=== PATIENT | male | born 1955 | race Caucasian/White ===

== ENCOUNTER 2020-05-30 09:28 | Inpatient (IN) | payer OTHER ==
[2020-05-30] MEDS ORDERED: NORMAL SALINE 1000 ML 1,000 ML IV ONE (10:23)
[2020-05-30] MEDS ORDERED: ONDANSETRON HCL INJ/PF 4 MG/2 ML SDV IV ONE (10:23)
--- NOTE | 2020-05-30 10:25 | ER Document Report ---
ED Medical Screen (RME) - General Chief Complaint: Abdominal Pain Stated Complaint: RIGHT ABDOMINAL PAIN Time Seen by Provider: 05/30/20 10:19 Primary Care Provider: CELSO COYNE MD [Primary Care Provider] - Follow up as needed Notes: Patient presents with right lower quadrant abdominal tenderness that started 3 days ago and has gradually worsened. Patient denies any urinary symptoms or fever. Patient reports nausea without vomiting or diarrhea. Patient's last meal was at 6:00 this morning. I have greeted and performed a rapid initial assessment of this patient. A comprehensive ED assessment and evaluation of the patient, analysis of test results and completion of the medical decision making process will be conducted by additional ED providers. TRAVEL OUTSIDE OF THE [place] IN LAST 30 DAYS: No - Related Data Allergies/Adverse Reactions: No Known Allergies Allergy (Verified 05/30/20 09:44) Past Medical History - Social History Frequency of alcohol use: Occasional Physical Exam - Vital signs Vitals: Temp Pulse Resp BP Pulse Ox 98.4 F 109 H 16 161/79 H 98 05/30/20 09:33 05/30/20 09:33 05/30/20 09:33 05/30/20 09:33 05/30/20 09:33 - Abdominal Tenderness: Tender - Right lower quadrant Course - Vital Signs Vital signs: Temp Pulse Resp BP Pulse Ox 98.4 F 109 H 16 161/79 H 98 05/30/20 09:33 05/30/20 09:33 05/30/20 09:33 05/30/20 09:33 05/30/20 09:33 Doctor's Discharge - Discharge Referrals: CELSO COYNE MD [Primary Care Provider] - Follow up as needed
[2020-05-30] MEDS ORDERED: KETOROLAC TROMETHAMINE 60 MG/2 ML SDV ONE (10:30)
[2020-05-30] MEDS ORDERED: ROCURONIUM BROMIDE INJ 50 MG/5 ML VIAL IV ONE (10:30)
[2020-05-30] MEDS ORDERED: LIDOCAINE 2% INJ-PF (20 MG/ML) 2 ML AMPUL ONE (10:30)
[2020-05-30] MEDS ORDERED: ONDANSETRON HCL INJ/PF 4 MG/2 ML SDV ONE (10:30)
[2020-05-30] MEDS ORDERED: SUCCINYLCHOLINE CHLORIDE INJ 200 MG/10 ML VIAL ONE (10:30)
[2020-05-30 10:34] LABS: HEMATOCRIT 42.2 % (37.9-51.0); HEMOGLOBIN 14.9 g/dL (13.5-17.0); MEAN CORPUSCULAR HEMOGLOBIN 31.3 pg (27.0-33.4); MEAN CORPUSCULAR HGB CONC 35.2 g/dL (32.0-36.0); MEAN CORPUSCULAR VOLUME 89 fl (80-97); PLATELET COUNT 260 10^3/uL (150-450); RED BLOOD COUNT 4.75 10^6/uL (4.35-5.55); WHITE BLOOD COUNT 10.7 10^3/uL (4.0-10.5)
--- NOTE | 2020-05-30 10:34 | ER Document Report ---
ED GI/ - General Chief Complaint: Abdominal Pain Stated Complaint: RIGHT ABDOMINAL PAIN Time Seen by Provider: 05/30/20 10:19 Primary Care Provider: CELSO COYNE MD [Primary Care Provider] - Follow up as needed Notes: CHIEF COMPLAINT: Right lower quadrant pain HPI: 64-year-old male with history of diabetes and hypertension presenting for right lower quadrant pain that began 3 days ago has been constant in nature. Yesterday patient states pain did radiate across the lower abdomen but today it is focal in the right lower quadrant worse with bending at the waist or walking. No history of abdominal surgeries. Had nausea vomiting this morning. No definite fevers at home ROS: See HPI - all other systems were reviewed and are otherwise negative Constitutional: no fever Eyes: no drainage, no blurred vision ENT: no runny nose, no sore throat Cardiovascular: no chest pain Resp: no SOB, no cough GI: + vomiting, no diarrhea, + abdominal pain : no dysuria Integumentary: no rash Allergy: no hives Musculoskeletal: no extremity pain or swelling Neurological: no numbness/tingling, no weakness MEDICATIONS: I agree with the patient medications as charted by the RN. ALLERGIES: I agree with the allergies as charted by the RN. PAST MEDICAL HISTORY/PAST SURGICAL HISTORY: Reviewed and agree as charted by RN. SOCIAL HISTORY: Reviewed and agree as charted by RN. FAMILY HISTORY: No significant familial comorbid conditions directly related to patient complaint EXAM: Reviewed vital signs as charted by RN. CONSTITUTIONAL: Alert and oriented and responds appropriately to questions. Well-appearing; well-nourished HEAD: Normocephalic; atraumatic EYES: PERRL; Conjunctivae clear, sclerae non-icteric ENT: normal nose; no rhinorrhea; moist mucous membranes; pharynx without lesions noted, no uvula edema or deviation, no tonsillar hypertrophy, phonation normal NECK: Supple without meningismus; non-tender; no cervical lymphadenopathy, no masses CARD: RRR; no murmurs, no clicks, no rubs, no gallops; symmetric distal pulses RESP: Normal chest excursion without splinting or tachypnea; breath sounds clear and equal bilaterally; no wheezes, no rhonchi, no rales, pulse oximetry 97% on room air not hypoxic ABD/GI: Obese, normal bowel sounds; non-distended; soft, non-tender, patient is tender in the right lower quadrant over McBurney's point, no guarding; no palpable organomegaly or masses. BACK: The back appears normal and is non-tender to palpation, there is no CVA tenderness EXT: Normal ROM in all joints; non-tender to palpation; no cyanosis, no effusions, no edema SKIN: Normal color for age and race; warm; dry; good turgor; no acute lesions noted NEURO: Moves all extremities equally; Motor and sensory function intact PSYCH: The patient's mood and manner are appropriate. Grooming and personal hygiene are appropriate. MDM: 64-year-old male pain in the right lower quadrant over the last 3 days fairly constant worse today with walking and movement. I suspect appendicitis. I did speak with his primary care provider Dr. Dyer prior to his arrival. Patient is n.p.o. Will obtain screening labs and CT imaging TRAVEL OUTSIDE OF THE [place] IN LAST 30 DAYS: No - Related Data Allergies/Adverse Reactions: No Known Allergies Allergy (Verified 05/30/20 09:44) Past Medical History - Social History Smoking Status: Never Smoker Frequency of alcohol use: Occasional Family History: Reviewed & Not Pertinent Physical Exam - Vital signs Vitals: Temp Pulse Resp BP Pulse Ox 98.4 F 109 H 16 161/79 H 98 05/30/20 09:33 05/30/20 09:33 05/30/20 09:33 05/30/20 09:33 05/30/20 09:33 Course - Re-evaluation Re-evalutation: 05/30/20 13:57 CT imaging shows acute appendicitis without perforation or abscess. Patient will be kept n.p.o. I will order Zosyn I have attempted to call Dr. Sexton surgery awaiting callback 05/30/20 14:[address] Sexton regarding the patient. We will order a rapid Covid. - Vital Signs Vital signs: Temp Pulse Resp BP Pulse Ox 98.4 F 109 H 16 161/79 H 98 05/30/20 09:33 05/30/20 09:33 05/30/20 09:33 05/30/20 09:33 05/30/20 09:33 - Laboratory Results Result Diagrams: 05/30/20 09:50 05/30/20 09:50 Laboratory Results Interpreted: 05/30/20 05/30/20 05/30/20 09:50 09:50 10:51 WBC 10.7 H Seg Neuts % (Manual) 87 H Lymphocytes % (Manual) 5 L Abs Neuts (Manual) 9.3 H BUN 30 H Glucose 152 H Urine Glucose (UA) >=500 H Urine Ketones 20 H Urine Ascorbic Acid 20 H Critical Laboratory Results Reviewed: No Critical Results - Radiology Results Critical Radiology Results Reviewed: No Critical Results Discharge - Discharge Clinical Impression: Acute appendicitis Qualifiers: Acute appendicitis type: with localized peritonitis Appendicitis gangrene presence: without gangrene Appendicitis perforation presence: without perfo ration Appendicitis abscess presence: without abscess Qualified Code(s): K35.30 - Acute appendicitis with localized peritonitis, without perforation or gangrene Condition: Stable Disposition: ADMITTED OBSERVATION Admitting Provider: Surgicalist - [facility] Unit Admitted: OR Referrals: CELSO COYNE MD [Primary Care Provider] - Follow up as needed
[2020-05-30 10:39] LABS: ALBUMIN 4.3 g/dL (3.5-5.0); ALKALINE PHOSPHATASE 74 U/L (38-126); ANION GAP 10 (5-19); ASPARTATE AMINO TRANSFERASE 24 U/L (17-59); BILIRUBIN,DIRECT 0.3 mg/dL (0.0-0.4); BILIRUBIN,TOTAL 0.9 mg/dL (0.2-1.3); BLOOD UREA NITROGEN 30 mg/dL (7-20); CALCIUM 9.8 mg/dL (8.4-10.2); CARBON DIOXIDE 28 mmol/L (22-30); CHLORIDE 100 mmol/L (98-107); GLUCOSE 152 mg/dL (75-110); POTASSIUM 4.8 mmol/L (3.6-5.0); TOTAL PROTEIN 7.1 g/dL (6.3-8.2)
[2020-05-30 10:49] LABS: ABSOLUTE LYMPHOCYTES# (MANUAL) 0.6 10^3/uL (0.5-4.7); ABSOLUTE MONOCYTES # (MANUAL) 0.7 10^3/uL (0.1-1.4); BASOPHILS % (MANUAL) 0 % (0-2); EOSINOPHILS % (MANUAL) 0 % (0-6); LYMPHOCYTES % (MANUAL) 5 % (13-45); MONOCYTES % (MANUAL) 7 % (3-13); PLATELET COMMENT ADEQUATE; RBC MORPHOLOGY COMMENT NORMO-CYTIC/CHROMIC; SEGMENTED NEUTROPHILS % (MAN) 87 % (42-78); TOTAL CELLS COUNTED 100
[2020-05-30 11:15] LABS: APPEARANCE,URINE SLIGHTLY-CLOUDY; BILIRUBIN,URINE NEGATIVE (NEGATIVE); COLOR,URINE YELLOW; GLUCOSE, URINE >=500 mg/dL (NEGATIVE); KETONES,URINE 20 mg/dL (NEGATIVE); LEUKOCYTE ESTERASE,URINE NEGATIVE (NEGATIVE); NITRITE,URINE NEGATIVE (NEGATIVE); PROTEIN,URINE NEGATIVE (NEGATIVE); URINE SPECIFIC GRAVITY 1.036; UROBILINOGEN,URINE NEGATIVE mg/dL (<2.0)
--- NOTE | 2020-05-30 13:52 | RADIOLOGY REPORT (SQ) ---
EXAM DESCRIPTION: CT ABD/PELVIS WITH IV ORAL IMAGES COMPLETED DATE/TIME: 05/30/2020 1:27 pm REASON FOR STUDY: appendicitis COMPARISON: None. TECHNIQUE: CT scan of the abdomen and pelvis performed using helical scanning technique with dynamic intravenous contrast injection. No oral contrast. Images reviewed with lung, soft tissue, and bone windows. Reconstructed coronal and sagittal MPR images reviewed. Delayed images for evaluation of the urinary system also acquired. All images stored on PACS. All CT scanners at this facility use dose modulation, iterative reconstruction, and/or weight based d osing when appropriate to reduce radiation dose to as low as reasonably achievable (ALARA). [facility]: Dose Right [facility]: CareDose [facility]: Dose Right [facility]: Teradose 4D [facility]: Iris Experience CONTRAST TYPE AND DOSE: Contrast/concentration: Isovue 350.00 mmol/ml; Total Contrast Delivered: 100 .0 ml; Total Saline Delivered: 70.0 ml RENAL FUNCTION: GFR > 60. RADIATION DOSE: CT Rad equipment meets quality standard of care and radiation dose reduction techniq ues were employed. CTDIvol: 14.9 - 18.0 mGy. DLP: 1978 mGy-cm. LIMITATIONS: None. FINDINGS: LOWER CHEST: No acute abnormality. LIVER: The relative low attenuation of the hepatic parenchyma compared to the splenic parenchyma on t he portal venous phase is suggestive of underlying hepatic steatosis. The portal veins are patent. There is no hepatic mass. SPLEEN: The spleen is enlarged and it measures 16 cm in AP diameter. The 8 mm hypodense lesion the s pleen (image 31 of series 2) is considered too small to characterize. PANCREAS: No acute gross abnormality of the pancreas. GALLBLADDER: The gallbladder is contracted. ADRENAL GLANDS: No mass or asymmetry. RIGHT KIDNEY AND URETER: The 7 mm low-attenuation lesion in the posterolateral cortex of the kidney ( image 43 of series 3) is considered too small to characterize. There is no solid mass, hydronephrosi s, nephrolithiasis, hydroureter or ureterolithiasis. LEFT KIDNEY AND URETER: No solid mass, hydronephrosis, nephrolithiasis, hydroureter or ureterolithias is. AORTA AND VESSELS: No aneurysm or dissection of the abdominal aorta. RETROPERITONEUM: No retroperitoneal adenopathy, hemorrhage or mass. BOWEL AND PERITONEAL CAVITY: No bowel obstruction, bowel wall thickening or pericolonic/perienteric i nflammation. No free intraperitoneal fluid or gas. APPENDIX: The appendix is dilated and there is associated stranding of the periappendiceal fat and th ickening of the adjacent peritoneal reflections. There is no periappendiceal abscess. PELVIS: The prostate gland measures 6.1 cm in transverse diameter. Urinary bladder is partially dist ended ABDOMINAL WALL: No abdominal wall mass or hernia. BONES: No acute abnormality. OTHER: No other finding. IMPRESSION: 1. Findings consistent with an acute appendicitis. There is no periappendiceal abscess. 2. Hepatic steatosis. 3. Splenomegaly. 4. Prostatomegaly. TECHNICAL DOCUMENTATION: JOB ID: [id number] Quality ID # [id number]: Final reports with documentation of one or more dose reduction techniques (e.g., Au tomated exposure control, adjustment of the mA and/or kV according to patient size, use of iterative reconstruction technique) 2010 [employer]- All Rights Reserved Reading location - IP/workstation name: [email or web address]
[2020-05-30] MEDS ORDERED: PIPERACILLIN/TAZOBACTAM 3.375 GM VIAL IV ONE (13:55)
--- NOTE | 2020-05-30 15:11 | PDOC H&P ---
History of Present Illness Admission Date/PCP: CELSO COYNE MD Patient presents with right lower quadrant abdominal tenderness that started 3 days ago and has gradually worsened. Patient denies any urinary symptoms or fever. Patient reports nausea without vomiting or diarrhea. Patient's last meal was at 6:00 this morning History of Present Illness: JULIO CESAR GOEL is a 64 year old male Patient presents with right lower quadrant abdominal tenderness that started 3 days ago and has gradually worsened. Patient denies any urinary symptoms or fever. Patient reports nausea without vomiting or diarrhea. Patient's last meal was at 6:00 this morning Past Medical History Cardiac Medical History: Reports: None, Hypertension Pulmonary Medical History: Reports: None Endocrine Medical History: Reports: Diabetes Mellitus Type 2 Past Surgical History Past Surgical History: Reports: Other - knee surgery Social History Smoking Status: Never Smoker Family History Family History: Reviewed & Not Pertinent Parental Family History Reviewed: No Children Family History Reviewed: NA Sibling(s) Family History Reviewed.: NA Medication/Allergy Home Medications: Amlodipine Besylate [Norvasc 10 mg Tablet] 10 mg PO DAILY 05/30/20 Ascorbate Calcium [Vitamin C] 500 mg PO DAILY 05/30/20 Atorvastatin Calcium [Lipitor 10 mg Tablet] 10 mg PO QHS 05/30/20 Celecoxib [Celebrex 200 mg Capsule] 200 mg PO BID 05/30/20 Dapagliflozin Propanediol [Farxiga] 5 mg PO DAILY 05/30/20 Losartan Potassium [Cozaar] 50 mg PO DAILY 05/30/20 Metformin HCl 1,000 mg PO QPM 05/30/20 Multivitamin [Tab-A-Papo (Multiple Vitamin) Tablet] 1 tab PO DAILY 05/30/20 Tamsulosin HCl [Flomax] 0.4 mg PO DAILY 05/30/20 Allergies/Adverse Reactions: No Known Allergies Allergy (Verified 05/30/20 09:44) Review of Systems Constitutional: PRESENT: anorexia, fatigue Eyes: ABSENT: as per HPI, visual disturbances, other Ears: ABSENT: as per HPI, hearing changes, other Nose, Mouth, and Throat: ABSENT: as per HPI, headache(s), mouth pain, sore throat, vertigo, other Breasts: ABSENT: as per HPI, other Cardiovascular: ABSENT: as per HPI, chest pain, dyspnea on exertion, edema, orthropnea, palpitations, other Respiratory: ABSENT: as per HPI, cough, dyspnea, hemoptysis, sputum, other Gastrointestinal: PRESENT: as per HPI Genitourinary: ABSENT: as per HPI, difficulty urinating, dysuria, hematuria, nocturia, other Integumentary: ABSENT: as per HPI, diaphoresis, erythema, lesions, pruritus, rash, wounds, other Neurological: ABSENT: as per HPI, abnormal gait, abnormal movements, abnormal speech, confusion, convulsions, dizziness, focal weakness, frequent falls, lack of coordination, memory loss, numbness, paresthesias, restless legs, syncope, tingling, tremor(s), vertigo, weakness, other Psychiatric: ABSENT: as per HPI, anxiety, depression, hallucinations, homidical ideation, suicidal ideation, other Endocrine: ABSENT: as per HPI, cold intolerance, flushing, heat intolerance, menstrual abnormalities, polydipsia, polyphagia, polyuria, other Hematologic/Lymphatic: ABSENT: as per HPI, easy bleeding, easy bruising, lymphadenopathy, other Physical Exam Vital Signs: Temp Pulse Resp BP Pulse Ox 98.4 F 109 H 16 161/79 H 98 05/30/20 09:33 05/30/20 09:33 05/30/20 09:33 05/30/20 09:33 05/30/20 09:33 Intake & Output 05/29/20 05/30/20 05/31/20 06:59 06:59 06:59 Weight 105.5 kg General appearance: PRESENT: mild distress Head exam: PRESENT: normocephalic Eye exam: PRESENT: EOMI Ear exam: PRESENT: normal external ear exam Mouth exam: PRESENT: moist Teeth exam: PRESENT: poor dentation Neck exam: PRESENT: full ROM Respiratory exam: PRESENT: clear to auscultation darrell Cardiovascular exam: PRESENT: RRR Pulses: PRESENT: normal radial pulses, normal femoral pulses Vascular exam: PRESENT: normal capillary refill Breast: PRESENT: Normal GI/Abdominal exam: PRESENT: tenderness - rlq Rectal exam: PRESENT: deferred Extremities exam: PRESENT: full ROM Musculoskeletal exam: PRESENT: ambulatory Neurological exam: PRESENT: alert, awake, oriented to person Psychiatric exam: PRESENT: appropriate affect Skin exam: PRESENT: dry Results Laboratory Results: 05/30/20 09:50 05/30/20 09:50 05/30/20 05/30/20 05/30/20 09:50 09:50 10:51 WBC 10.7 H RBC 4.75 Hgb 14.9 Hct 42.2 MCV 89 MCH 31.3 MCHC 35.2 RDW 14.0 Plt Count 260 Seg Neutrophils % Not Reportable Sodium 138.0 Potassium 4.8 Chloride 100 Carbon Dioxide 28 Anion Gap 10 BUN 30 H Creatinine 1.21 Est GFR ( Amer) > 60 Glucose 152 H Calcium 9.8 Total Bilirubin 0.9 AST 24 Alkaline Phosphatase 74 Total Protein 7.1 Albumin 4.3 Urine Color YELLOW Urine Appearance SLIGHTLY-CLOUDY Urine pH 5.0 Ur Specific [place] 1.036 Urine Protein NEGATIVE Urine Glucose (UA) >=500 H Urine Ketones 20 H Urine Blood NEGATIVE Urine Nitrite NEGATIVE Ur Leukocyte Esterase NEGATIVE Urine WBC (Auto) 0 Urine RBC (Auto) 0 Impressions: Abdomen/Pelvis CT 05/30/20 00:00 IMPRESSION: 1. Findings consistent with an acute appendicitis. There is no periappendiceal abscess. 2. Hepatic steatosis. 3. Splenomegaly. 4. Prostatomegaly. Assessment & Plan - Time Anticipated Discharge Disposition: Home, Self Care Anticipated Discharge Timeframe: unk - Plan Summary Plan Summary: impression acute appendicitis plan laparoscopic appendectomy risks benifits discussed with pt who agrees to proceed.
[2020-05-30] MEDS ORDERED: BUPIVACAINE INJ/PF LIPOSOME/PF 266 MG/20 ML SDV ONE (16:06)
[2020-05-30] MEDS ORDERED: FENTANYL CITRATE INJ/PF 100 MCG/2 ML AMPUL ONE (16:16)
[2020-05-30] MEDS ORDERED: MORPHINE SULFATE 10 MG/ML INJ ONE (16:17)
[2020-05-30] MEDS ORDERED: SUGAMMADEX SODIUM 200 MG/2 ML SDV IV ONE (16:17)
[2020-05-30] MEDS ORDERED: PROPOFOL INJ 200 MG/20 ML VIAL IV ONE (16:17)
[2020-05-30] MEDS ORDERED: MIDAZOLAM 2 MG/2 ML INJ ONE (16:17)
[2020-05-30] MEDS ORDERED: ONDANSETRON HCL INJ/PF 4 MG/2 ML SDV IV PRN ×2 (17:53→18:11)
[2020-05-30] MEDS ORDERED: MORPHINE SULFATE 10 MG/ML INJ IV PRN ×2 (17:53→18:11)
[2020-05-30] MEDS ORDERED: ACETAMINOPHEN 325 MG TABLET PO PRN (17:53)
--- NOTE | 2020-05-30 18:07 | Operative Report ---
Nonrecallable Operative Report DATE OF SURGERY: 05/30/20 PREOPERATIVE DIAGNOSIS: Appendicitis POSTOPERATIVE DIAGNOSIS: Ruptured appendicitis with phlegmon OPERATION: Laparoscopic appendectomy SURGEON: RICARDO STOVALL ANESTHESIA: GA TISSUE REMOVED OR ALTERED: Appendix COMPLICATIONS: None ESTIMATED BLOOD LOSS: 25 cc INTRAOPERATIVE FINDINGS: Ruptured appendicitis with phlegmon in the right lower quadrant PROCEDURE: Patient was brought to the operating room awake alert stable condition placed on the operating table supine position induced under general anesthesia and intubated. The abdomen was prepped and draped in usual sterile fashion. After appropriate timeout and site verification the procedure commenced. An umbilical Boubacar incision was made 5 cm in length just on top of the umbilicus and the Veress needle was placed into the abdominal cavity intra-abdominal visualization revealed no evidence of Veress needle or trocar injury after the 5 mm port was placed. A second 5 mm port was placed suprapubic and the third 11 mm port was placed in the left lower quadrant. The right lower quadrant was visualized. There was a phlegmon of the cecum adhered to the lateral abdominal wall and the appendix appeared to be retrocecal. The peritoneum was taken down with Bovie cautery to mobilize the cecum medially we were then able to identify the appendix and placed that on traction the mesoappendix was taken down with 1 firing the Endo JENS stapler with a white load and we came across the base the appendix on the cecum with 1 firing of the Endo JENS stapler with a blue load placed the appendix in the Endobag and removed through the left lower quadrant port site. I then had some concern about the right ureter and therefore I mobilized the peritoneum over the iliac vessels on the right side and identify the right ureter and traced it back to the area of surgery where we noted to proceed proximally with no evidence of any injury. We then irrigated the pelvis and right lower quadrant normal saline suctioned dry after hemostasis with was confirmed we reduce the pneumoperitoneum and closed the fascial defect in the left lower quadrant with 0 Vicryl and closed all 3 skin incisions with intracuticular 4-0 Biosyn Steri-Strips completed the procedure. Estimated blood loss was less than 25 cc sponge needle counts were correct x2 the patient was awakened in the operating extubated transferred recovery in stable condition no complications.
[2020-05-30] MEDS ORDERED: FENTANYL CITRATE INJ/PF 100 MCG/2 ML AMPUL IV PRN ×2 (18:11)
[2020-05-30] MEDS ORDERED: MEPERIDINE HCL/PF INJ 25 MG/1 ML DISP.SYRIN IV PRN (18:11)
[2020-05-30] MEDS ORDERED: PROMETHAZINE HCL INJ 25 MG/1 ML VIAL IV PRN (18:11)
[2020-05-30] MEDS ORDERED: DIPHENHYDRAMINE HCL 50 MG/ML VIAL IV PRN (18:11)
[2020-05-30] MEDS ORDERED: OXYCODONE-ACETAMINOPHEN 5-325 MG TABLET PO PRN ×2 (18:11)
[2020-05-30] MEDS: AMPICILLIN SODIUM/SULBACTAM NA 3 GM in NORMAL SALINE 100 ML IV SCH (22:09)
[2020-05-30] MEDS: FAMOTIDINE INJ/PF 20 MG/2 ML SDV IV SCH (22:09)
[2020-05-30] MEDS: POTASSI CL 20 MEQ/D5-1/2NS 1L 1,000 ML IV PRN (22:09)
[2020-05-31] MEDS: AMPICILLIN SODIUM/SULBACTAM NA 3 GM in NORMAL SALINE 100 ML IV SCH ×2 (05:28→14:11)
[2020-05-31 06:36] LABS: ANION GAP 6 (5-19); BLOOD UREA NITROGEN 24 mg/dL (7-20); CALCIUM 8.3 mg/dL (8.4-10.2); CARBON DIOXIDE 23 mmol/L (22-30); CHLORIDE 104 mmol/L (98-107); GLUCOSE 158 mg/dL (75-110); POTASSIUM 4.8 mmol/L (3.6-5.0)
[2020-05-31 08:54] LABS: HEMATOCRIT 38.3 % (37.9-51.0); HEMOGLOBIN 13.7 g/dL (13.5-17.0); MEAN CORPUSCULAR HEMOGLOBIN 31.5 pg (27.0-33.4); MEAN CORPUSCULAR HGB CONC 35.7 g/dL (32.0-36.0); MEAN CORPUSCULAR VOLUME 88 fl (80-97); PLATELET COUNT 206 10^3/uL (150-450); RED BLOOD COUNT 4.35 10^6/uL (4.35-5.55); RED CELL DISTRIBUTION WIDTH 14.1 % (11.5-14.0); WHITE BLOOD COUNT 10.2 10^3/uL (4.0-10.5)
[2020-05-31] MEDS: FAMOTIDINE INJ/PF 20 MG/2 ML SDV IV SCH (09:02)
[2020-05-31 09:15] LABS: ABSOLUTE LYMPHOCYTES# (MANUAL) 0.3 10^3/uL (0.5-4.7); ABSOLUTE MONOCYTES # (MANUAL) 0.6 10^3/uL (0.1-1.4); BASOPHILS % (MANUAL) 0 % (0-2); EOSINOPHILS % (MANUAL) 0 % (0-6); LYMPHOCYTES % (MANUAL) 3 % (13-45); MONOCYTES % (MANUAL) 6 % (3-13); SEGMENTED NEUTROPHILS % (MAN) 91 % (42-78); TOTAL CELLS COUNTED 100
[2020-05-31 09:16] LABS: ANISOCYTOSIS SLIGHT; OVALOCYTES SLIGHT; PLATELET COMMENT ADEQUATE
[2020-05-31] MEDS: POTASSI CL 20 MEQ/D5-1/2NS 1L 1,000 ML IV PRN (09:18)
--- NOTE | 2020-05-31 13:26 | PDOC DISCHARGE SUMMARY ---
General - Admit/Disc Date/PCP Admission Date/Primary Care Provider: 05/30/20 17:53 CELSO COYNE MD Discharge Date: 05/31/20 - Discharge Diagnosis Final Diagnosis: acute, perforated appendicitis - Assessment Summary: 64-year-old male, admitted for acute appendicitis. He was taken to the operating room where acute appendicitis with localized perforation was identified. He underwent laparoscopic appendectomy, and tolerated the procedure well. He was taken to the floor in stable condition. Today, he is afebrile, he is ambulating, he is tolerating a diet. At this time it is felt that he has reached maximal hospital benefit, and is fit for discharge. Plan for discharge home with close follow-up and oral antibiotics. - Additional Information Resuscitation Status: Full Code Discharge Diet: As Tolerated Discharge Activity: Balance Activity w/Rest, No Lifting Over 10 Pounds, No Lifting/Push/Pulling Referrals: CELSO COYNE MD [Primary Care Provider] - Follow up as needed Prescriptions: Amoxicillin/Potassium Clav [Augmentin 875-125 Tablet] 1 tab PO Q12 #14 tablet Metronidazole [Flagyl 500 mg Tablet] 500 mg PO TID #21 tablet Hydrocodone/Acetaminophen [[place] 10-325 mg Tablet] 1 tab PO Q6HP PRN #14 tablet PRN Reason: For Pain Home Medications: Amlodipine Besylate [Norvasc 10 mg Tablet] 10 mg PO DAILY 05/30/20 Ascorbate Calcium [Vitamin C] 500 mg PO DAILY 05/30/20 Atorvastatin Calcium [Lipitor 10 mg Tablet] 10 mg PO QHS 05/30/20 Celecoxib [Celebrex 200 mg Capsule] 200 mg PO BID 05/30/20 Dapagliflozin Propanediol [Farxiga] 5 mg PO DAILY 05/30/20 Losartan Potassium [Cozaar] 50 mg PO DAILY 05/30/20 Metformin HCl 1,000 mg PO QPM 05/30/20 Multivitamin [Tab-A-Papo (Multiple Vitamin) Tablet] 1 tab PO DAILY 05/30/20 Tamsulosin HCl [Flomax] 0.4 mg PO DAILY 05/30/20 Amoxicillin/Potassium Clav [Augmentin 875-125 Tablet] 1 tab PO Q12 #14 tablet 05/31/20 Hydrocodone/Acetaminophen [[place] 10-325 mg Tablet] 1 tab PO Q6HP PRN #14 tablet 05/31/20 Metronidazole [Flagyl 500 mg Tablet] 500 mg PO TID #21 tablet 05/31/20 Additional Information: Discharge home. Diet as tolerated. Activity: No lifting greater than 10 pounds x 2 weeks. Follow-up with [facility] in 7 to 10 days. [place] 10/325 mg p.o. every 6 hours as needed for pain. Augmentin 875 mg p.o. every 12 hours x7 days. Flagyl 500 mg p.o. 3 times daily x7 days. Okay to shower starting tomorrow. No hot tubs, bathtubs, or swimming pools x2 weeks. History of Present Illiness History of Present Illness: JULIO CESAR GOEL is a 64 year old male Physical Exam Vital Signs: Temp Pulse Resp BP Pulse Ox 98.8 F 93 18 133/79 H 94 05/31/20 09:12 05/31/20 08:09 05/31/20 08:09 05/31/20 08:09 05/31/20 08:09 Intake & Output 05/30/20 05/31/20 06/01/20 06:59 06:59 06:59 Intake Total 3400 Output Total 1520 Balance 1880 Weight 105.7 kg Results Laboratory Results: WBC 10.2 10^3/uL (4.0-10.5) 05/31/20 08:22 RBC 4.35 10^6/uL (4.35-5.55) 05/31/20 08:22 Hgb 13.7 g/dL (13.5-17.0) 05/31/20 08:22 Hct 38.3 % (37.9-51.0) 05/31/20 08:22 MCV 88 fl (80-97) 05/31/20 08:22 MCH 31.5 pg (27.0-33.4) 05/31/20 08:22 MCHC 35.7 g/dL (32.0-36.0) 05/31/20 08:22 RDW 14.1 % (11.5-14.0) H 05/31/20 08:22 Plt Count 206 10^3/uL (150-450) 05/31/20 08:22 Lymph % (Auto) Not Reportable 05/31/20 08:22 [place] % (Auto) Not Reportable 05/31/20 08:22 Eos % (Auto) Not Reportable 05/31/20 08:22 Baso % (Auto) Not Reportable 05/31/20 08:22 Absolute Neuts (auto) Not Reportable 05/31/20 08:22 Absolute Lymphs (auto) Not Reportable 05/31/20 08:22 Absolute Monos (auto) Not Reportable 05/31/20 08:22 Absolute Eos (auto) Not Reportable 05/31/20 08:22 Absolute Basos (auto) Not Reportable 05/31/20 08:22 Total Counted 100 05/31/20 08:22 Seg Neutrophils % Not Reportable 05/31/20 08:22 Seg Neuts % (Manual) 91 % (42-78) H 05/31/20 08:22 Lymphocytes % (Manual) 3 % (13-45) L 05/31/20 08:22 Atypical Lymphs % 1 % (0) 05/30/20 09:50 Monocytes % (Manual) 6 % (3-13) 05/31/20 08:22 Eosinophils % (Manual) 0 % (0-6) 05/31/20 08:22 Basophils % (Manual) 0 % (0-2) 05/31/20 08:22 Abs Neuts (Manual) 9.3 10^3/uL (1.7-8.2) H 05/31/20 08:22 Abs Lymphs (Manual) 0.3 10^3/uL (0.5-4.7) L 05/31/20 08:22 Abs Monocytes (Manual) 0.6 10^3/uL (0.1-1.4) 05/31/20 08:22 Absolute Eos (Manual) 0.0 10^3/uL (0.0-0.6) 05/31/20 08:22 Abs Basophils (Manual) 0.0 10^3/uL (0.0-0.2) 05/31/20 08:22 Platelet Estimate Cancelled 05/31/20 05:22 Platelet Comment ADEQUATE 05/31/20 08:22 Anisocytosis SLIGHT 05/31/20 08:22 Ovalocytes SLIGHT 05/31/20 08:22 RBC Morph Comment NORMO-CYTIC/CHROMIC 05/30/20 09:50 Sodium 133.1 mmol/L (137-145) L 05/31/20 05:22 Potassium 4.8 mmol/L (3.6-5.0) 05/31/20 05:22 Chloride 104 mmol/L (98-107) 05/31/20 05:22 Carbon Dioxide 23 mmol/L (22-30) 05/31/20 05:22 Anion Gap 6 (5-19) 05/31/20 05:22 BUN 24 mg/dL (7-20) H 05/31/20 05:22 Creatinine 0.94 mg/dL (0.52-1.25) 05/31/20 05:22 Est GFR ( Amer) > 60 (>60) 05/31/20 05:22 Est GFR (MDRD) Non-Af > 60 (>60) 05/31/20 05:22 Glucose 158 mg/dL (75-110) H 05/31/20 05:22 POC Glucose 169 mg/dL (70-110) H 05/31/20 06:14 Calcium 8.3 mg/dL (8.4-10.2) L 05/31/20 05:22 Total Bilirubin 0.9 mg/dL (0.2-1.3) 05/30/20 09:50 Direct Bilirubin 0.3 mg/dL (0.0-0.4) 05/30/20 09:50 Neonat Total Bilirubin Not Reportable 05/30/20 09:50 Neonat Direct Bilirubin Not Reportable 05/30/20 09:50 Neonat Indirect Bili Not Reportable 05/30/20 09:50 AST 24 U/L (17-59) 05/30/20 09:50 ALT 30 U/L (<50) 05/30/20 09:50 Alkaline Phosphatase 74 U/L (38-126) 05/30/20 09:50 Total Protein 7.1 g/dL (6.3-8.2) 05/30/20 09:50 Albumin 4.3 g/dL (3.5-5.0) 05/30/20 09:50 Urine Color YELLOW 05/30/20 10:51 Urine Appearance SLIGHTLY-CLOUDY 05/30/20 10:51 Urine pH 5.0 (5.0-9.0) 05/30/20 10:51 Ur Specific [place] 1.036 05/30/20 10:51 Urine Protein NEGATIVE mg/dL (NEGATIVE) 05/30/20 10:51 Urine Glucose (UA) >=500 mg/dL (NEGATIVE) H 05/30/20 10:51 Urine Ketones 20 mg/dL (NEGATIVE) H 05/30/20 10:51 Urine Blood NEGATIVE (NEGATIVE) 05/30/20 10:51 Urine Nitrite NEGATIVE (NEGATIVE) 05/30/20 10:51 Urine Bilirubin NEGATIVE (NEGATIVE) 05/30/20 10:51 Urine Urobilinogen NEGATIVE mg/dL (<2.0) 05/30/20 10:51 Ur Leukocyte Esterase NEGATIVE (NEGATIVE) 05/30/20 10:51 Urine WBC (Auto) 0 /HPF 05/30/20 10:51 Urine RBC (Auto) 0 /HPF 05/30/20 10:51 Squamous Epi Cells Auto <1 /HPF 05/30/20 10:51 Urine Mucus (Auto) RARE /LPF 05/30/20 10:51 Urine Ascorbic Acid 20 (NEGATIVE) H 05/30/20 10:51 Influenza A (RT-PCR) NEGATIVE (NEGATIVE) 05/30/20 15:08 Influenza B (RT-PCR) NEGATIVE (NEGATIVE) 05/30/20 15:08 RSV (RT-PCR) NEGATIVE (NEGATIVE) 05/30/20 15:08 SARS-CoV-2 Rap RNA(RT-PCR) NEGATIVE (NEGATIVE) 05/30/20 15:08 Slides for Path Review Cancelled 05/31/20 05:22 Impressions: Abdomen/Pelvis CT 05/30/20 00:00 IMPRESSION: 1. Findings consistent with an acute appendicitis. There is no periappendiceal abscess. 2. Hepatic steatosis. 3. Splenomegaly. 4. Prostatomegaly.
[2020-05-31 14:14] VITALS: BP 141/83
[2020-05-31] MEDS ORDERED: CELECOXIB 200 MG CAPSULE PO SCH (18:00)
[2020-05-31] MEDS ORDERED: METFORMIN HCL 500 MG TABLET PO SCH (18:00)
[2020-05-31] MEDS ORDERED: ATORVASTATIN CALCIUM 10 MG TABLET PO SCH (22:00)
[2020-06-01] MEDS ORDERED: LOSARTAN POTASSIUM 50 MG TABLET PO SCH (10:00)
[2020-06-01] MEDS ORDERED: ASCORBATE CALCIUM 500 MG PO SCH (10:00)
[2020-06-01] MEDS ORDERED: TAMSULOSIN HCL 0.4 MG CAP.SR.24H PO SCH (10:00)
[2020-06-01] MEDS ORDERED: DAPAGLIFLOZIN PROPANEDIOL 5 MG PO SCH (10:00)
[2020-06-01] MEDS ORDERED: MULTIVITAMIN TABLET PO SCH (10:00)
[2020-06-01] MEDS ORDERED: AMLODIPINE BESYLATE 10 MG TABLET PO SCH (10:00)
[2020-06-01] MEDS ORDERED: ASCORBIC ACID 500 MG TABLET PO SCH (10:00)
== END 2020-05-31 14:19 | disposition home or self-care (01) | DRG 340 ==
LOC: ER 09:28 → EH 15:11 → OBSVTOIN 17:53 → 4S 19:26
PROVIDERS: ADMIT Surgery; ATTEND Surgery
PROC: 0DTJ4ZZ Resection of Appendix, Percutaneous Endoscopic Approach (ICD-10-PCS; principal; 2020-05-30 16:30)
DX: K35.33 Acute appendicitis with perforation, localized peritonitis, and gangrene, with abscess (principal); I10 Essential (primary) hypertension; E11.9 Type 2 diabetes mellitus without complications; Z79.84 Long term (current) use of oral hypoglycemic drugs; Z79.899 Other long term (current) drug therapy
CPT/HCPCS: 36415; 74177; 80048; 80053; 81001; 82962; 840; 85025; 88304; 94799; 96361; 96365; 96375; 99140; 99285; 0241U; C9290; C9803; J0295; J0330; J1885; J2250; J2270; J2405; J2543; J2704; J3010; J3480; J3490; J7030; J7050; S0028